=== PATIENT | male | born 1955 | race Caucasian/White ===

== ENCOUNTER 2021-06-22 08:26 | Emergency (ER) | payer BC ==
[~2021-06-22] VITALS: Ht 177.8 cm; Wt 81.6 kg
[2021-06-22] MEDS ORDERED: SODIUM CHLORIDE 0.9% 1000ML 1,000 ML IV STA (08:49)
[2021-06-22] MEDS ORDERED: KETOROLAC TROMETHAMINE 30 MG/ML VIAL IV STA (08:50)
[2021-06-22] MEDS ORDERED: METHYLPREDNISOLONE SOD SUCC 125 MG/2ML VIAL IV STA (08:50)
[2021-06-22] MEDS ORDERED: METOCLOPRAMIDE HCL 10 MG/2ML VIAL IV STA (08:50)
[2021-06-22] MEDS ORDERED: DIPHENHYDRAMINE HCL INJ 50 MG/ML VIAL IV STA (08:50)
[2021-06-22] MEDS ORDERED: KETOROLAC TROMETHAMINE 30 MG/ML VIAL ONE (09:16)
[2021-06-22] MEDS ORDERED: METHYLPREDNISOLONE SOD SUCC 125 MG/2ML VIAL ONE (09:16)
[2021-06-22] MEDS ORDERED: METOCLOPRAMIDE HCL 10 MG/2ML VIAL ONE (09:16)
[2021-06-22] MEDS ORDERED: DIPHENHYDRAMINE HCL INJ 50 MG/ML VIAL ONE (09:16)
[2021-06-22] MEDS ORDERED: SODIUM CHLORIDE 0.9% 1000ML 1,000 ML ONE (09:17)
[2021-06-22 10:54] VITALS: BP 158/77
== END 2021-06-22 11:02 | disposition other institution (70) ==
LOC: FSED 08:48
DX: I62.00 Nontraumatic subdural hemorrhage, unspecified (principal); I10 Essential (primary) hypertension; E78.5 Hyperlipidemia, unspecified; I25.10 Atherosclerotic heart disease of native coronary artery without angina pectoris; I25.2 Old myocardial infarction
CPT/HCPCS: 70450; 96374; 99284; J1200; J1885; J2765; J2930; J7030

== ENCOUNTER 2022-08-07 07:38 | Emergency (ER) | payer BC ==
[~2022-08-07] VITALS: Ht 177.8 cm; Wt 76.8 kg
[2022-08-07] MEDS ORDERED: GLUCOSAMINE &1 EACH (07:58)
[2022-08-07] MEDS ORDERED: CRESTOR10 MG PO (07:58)
[2022-08-07] MEDS ORDERED: MIRTAZAPINE15 MG PO (07:58)
[2022-08-07] MEDS ORDERED: DIOVAN80 MG PO (07:58)
[2022-08-07] MEDS ORDERED: METOPROLOL SUCC50 MG PO (07:58)
[2022-08-07] MEDS ORDERED: ASPIRIN 81 MG CHEW TAB ONE (08:11)
[2022-08-07] MEDS ORDERED: ASPIRIN 325 MG TAB PO ONE (08:15)
[2022-08-07] MEDS ORDERED: SODIUM CHLORIDE 0.9% 1000ML 1,000 ML IV SCH (08:15)
[2022-08-07] MEDS ORDERED: DILTIAZEM HCL 5 MG/ML 5 ML VIAL IV ONE (08:15)
[2022-08-07] MEDS ORDERED: ASPIRIN 325 MG TAB ONE (08:15)
[2022-08-07 11:02] VITALS: O2SAT 97
== END 2022-08-07 11:42 | disposition other institution (70) ==
LOC: FSED 07:56
DX: R07.9 Chest pain, unspecified (principal); I48.20 Chronic atrial fibrillation, unspecified; R11.2 Nausea with vomiting, unspecified; I10 Essential (primary) hypertension; I25.10 Atherosclerotic heart disease of native coronary artery without angina pectoris; E78.5 Hyperlipidemia, unspecified; K21.9 Gastro-esophageal reflux disease without esophagitis; F32.A Depression, unspecified; I25.2 Old myocardial infarction; Z95.1 Presence of aortocoronary bypass graft; Z95.5 Presence of coronary angioplasty implant and graft
CPT/HCPCS: 71046; 80053; 82553; 83880; 84484; 85025; 85610; 93005; 96374; 99284; J7030